=== PATIENT | female | born 1935 | race Caucasian/White ===

== ENCOUNTER → 2017-08-07 | Outpatient (CLI) | payer MEDICARE ==
[2017-08-07 10:27] LABS: ABSOLUTE BASOPHILS 0.1 thou/uL (0.0-0.2); ABSOLUTE EOSINOPHILS 0.2 thou/uL (0.0-0.7); ABSOLUTE LYMPHOCYTES 1.3 thou/uL (0.8-5.3); ABSOLUTE MONOCYTES 0.5 thou/uL (0.0-1.2); ABSOLUTE NEUTROPHILS 2.9 thou/uL (1.6-8.1); BASOPHILS 1.9 %; EOSINOPHILS 3.5 %; HEMATOCRIT 37.7 % (37.0-47.0); HEMOGLOBIN 12.6 gm/dL (12.0-15.0); LYMPHOCYTES 25.9 %; MCH 28.8 pg (26.0-34.0); MCHC 33.3 g/dL (28.0-37.0); MCV 86.6 fL (80.0-100.0); MONOCYTES 9.6 %; MPV 7.4 fl. (7.2-11.1); NUCLEATED RBCS 0 /100WBC; PLATELET COUNT* 286 thou/uL (150-400); POLYS 59.1 %; RBC 4.36 mil/uL (4.20-5.00); WBC 4.9 thou/uL (4.0-11.0)
[2017-08-07 10:46] LABS: ALBUMIN 3.2 g/dL (3.4-5.0); CALCIUM 8.8 mg/dL (8.5-10.1); CREATININE 0.8 mg/dL (0.6-1.3); PHOSPHORUS* 3.6 mg/dL (2.5-4.9); POTASSIUM 4.3 mmol/L (3.5-5.1)
[2017-08-07 21:07] LABS: eGFR IF AFRICAN AMERICAN 69 (>59)
[2017-08-08 15:11] LABS: PARATHYROID HORMONE 50 pg/mL (15-65)
== END ==
LOC: M.LAB 10:08
PROVIDERS: Internal Medicine Nephrology
DX: N18.3 Chronic kidney disease, stage 3 (moderate) (principal)

== ENCOUNTER 2018-07-30 09:31 | Inpatient (IN) | payer MEDICARE ==
[2018-07-30] VITALS (9 sets, daily range): BP systolic 102–182; BP diastolic 37–96
[~2018-07-30] VITALS: Ht 160 cm; Wt 65.3 kg
[2018-07-30 10:11] LABS: ABSOLUTE LYMPHOCYTES 0.8 thou/uL (0.8-5.3); ABSOLUTE MONOCYTES 0.7 thou/uL (0.0-1.2); ABSOLUTE NEUTROPHILS 6.1 thou/uL (1.6-8.1); BASOPHILS 0.4 %; EOSINOPHILS 0.4 %; HEMATOCRIT 38.2 % (37.0-47.0); HEMOGLOBIN 13.5 gm/dL (12.0-15.0); LYMPHOCYTES 10.9 %; MCH 29.7 pg (26.0-34.0); MCHC 35.3 g/dL (28.0-37.0); MCV 84.1 fL (80.0-100.0); MONOCYTES 8.8 %; MPV 7.6 fl. (7.2-11.1); NUCLEATED RBCS 0 /100WBC; PLATELET COUNT* 283 thou/uL (150-400); POLYS 79.5 %; RBC 4.55 mil/uL (4.20-5.00); RDW-CV 13.5 % (10.5-14.5); WBC 7.6 thou/uL (4.0-11.0)
[2018-07-30 10:19] LABS: ANION GAP 11 mmol/L (7-16); BUN 12 mg/dL (7-18); CALCIUM 8.7 mg/dL (8.5-10.1); CHLORIDE 78 mmol/L (98-107); CO2 28 mmol/L (21-32); CREATININE 0.8 mg/dL (0.6-1.3); GLUCOSE 105 mg/dL (70-99); POTASSIUM 3.4 mmol/L (3.5-5.1)
[2018-07-30 10:21] LABS: SODIUM 117 mmol/L (136-145)
[2018-07-30 10:31] LABS: ALBUMIN 3.3 g/dL (3.4-5.0); ALKALINE PHOSPHATASE 89 U/L (46-116); LIPASE 81 U/L (73-393); SGOT 26 U/L (15-37); SGPT 23 U/L (30-65); TOTAL BILIRUBIN 0.9 mg/dL (<0.1-1.0); TOTAL PROTEIN 7.1 g/dL (6.4-8.2); TROPONIN-I LEVEL <0.06 ng/mL (<0.06)
[2018-07-30] MEDS ORDERED: ESTRACE1 MG PO (13:24)
[2018-07-30] MEDS ORDERED: OMEPRAZOLE 20 M20 M1 PO (13:25)
[2018-07-30] MEDS ORDERED: ATIVAN0.5 MG PO (13:26)
[2018-07-30] MEDS ORDERED: LISINOPRIL40 MG PO (13:30)
[2018-07-30] MEDS ORDERED: ULTRAM 50MG TAB50 MG PO (13:31)
[2018-07-30] MEDS ORDERED: CENTRUM SILVER1 EAC4 PO (13:32)
[2018-07-30] MEDS ORDERED: BENEFIBER1 EAC1 PO (13:32)
[2018-07-30] MEDS ORDERED: SYMBICORT160 MCG/4. INH (13:34)
[2018-07-30] MEDS ORDERED: CHERATUSSIN AC118 ML PO (13:35)
--- NOTE | 2018-07-30 15:08 | EKG ---
[place] [address] ELECTROCARDIOGRAM REPORT Name: VARUN WOO Room: [address] ADM IN M.R.#: [id number] Admission: 07/30/18 Attend Phys: Nirav Kuhn Discharge: Date of : 33 Report #: [id number] THIS REPORT FOR: //name// [facility] ED Test Date: 2018-07-30 Test Time: 10:01:58 Pat Name: VARUN WOO Department: Room: [facility] Gender: F Operational Review Sergeant: ZBIGNIEW : 1935 Requested By: Misael Martins Order Number: [id number] MD: Grant Blair Measurements Intervals [place] Rate: 71 P: 60 [place]: 212 QRS: -51 QRSD: 136 T: 74 QT: 463 QTc: 504 Interpretive Statements Sinus rhythm Borderline prolonged AK interval Left bundle branch block No previous ECG available for comparison Electronically Signed On 07-30-2018 15:08:39 CDT by Grant Blair [email or web address] <ELECTRONICALLY SIGNED> By: Grant Blair MD, [facility] 07/30/18 1508 00 00 Grant Blair MD, FAC /EPI
[2018-07-30 15:55] LABS: URINE BILIRUBIN NEGATIVE (Negative); URINE BLOOD 2+ (Negative); URINE CLARITY CLEAR; URINE COLOR YELLOW; URINE GLUCOSE-RANDOM NEGATIVE (Negative); URINE KETONES 1+ (Negative); URINE LEUKOCYTES NEGATIVE (Negative); URINE NITRITE NEGATIVE (Negative); URINE PROTEIN NEGATIVE (Negative); URINE UROBILINOGEN 0.2 E.U./dl (0.2-1.0)
[2018-07-30 16:16] LABS: CASTS None Seen /LPF (None Seen); MUCUS None Seen strn/LPF (None Seen); SQUAMOUS >10 Many /LPF (0-3)
[2018-07-30 16:17] LABS: BACTERIA None Seen /HPF (None Seen); CRYSTALS None Seen /LPF (None Seen); URINE RBC 3-10 Few /HPF (0-2); URINE WBC None Seen /HPF (0-5)
--- NOTE | 2018-07-30 18:08 | NUR ---
PATIENT ADMITTED FROM ER DENIES DISTRESS. STARTED IV RT FA FLUIDS INFUSING PAIN CONTROLLED WITH TRAMADOL. NEPHROLOGY CONSULTED SPOKE WITH DR MONDRAGON IF NA NOT ABOVE 120.
[2018-07-31] VITALS (19 sets, daily range): BP systolic 83–160; BP diastolic 52–108
[2018-07-31 02:47] LABS: CALCIUM 8.4 mg/dL (8.5-10.1); CREATININE 0.8 mg/dL (0.6-1.3); POTASSIUM 3.1 mmol/L (3.5-5.1)
[2018-07-31 05:02] LABS: CALCIUM 7.9 mg/dL (8.5-10.1); CREATININE 0.7 mg/dL (0.6-1.3); POTASSIUM 3.1 mmol/L (3.5-5.1)
--- NOTE | 2018-07-31 06:20 | NUR ---
ASSUMED CARE OF PT AT 1900 PT ALERT AND ORIENTED X4 VS AND ASSESSMENT STABLE. PT C/O NAUSEA OBTAINED ORDERS FOR ZOFRAN GAVE X2 OVERNIGHT. PT NA [address] MACEDO ORDERS OBTAINED FOR 3% SALINE AT 20MLS/HR FOR A TOTAL OF 400ML AND RECHECH ELECTROLYTES Q2H. 0220 NA 116, 0420 NA 115. PT SLEPT THROUGH THE NIGHT. WILL CONTINUE PLAN OF CARE.
[2018-07-31 06:58] LABS: CALCIUM 7.9 mg/dL (8.5-10.1); CREATININE 0.7 mg/dL (0.6-1.3)
[2018-07-31 09:28] LABS: CALCIUM 8.1 mg/dL (8.5-10.1); CREATININE 0.7 mg/dL (0.6-1.3)
[2018-07-31 09:33] LABS: POTASSIUM 2.9 mmol/L (3.5-5.1)
--- NOTE | 2018-07-31 10:29 | NUR ---
INITIAL ASSESSMENT: Pt evaluated for d/c planning needs. Reviewed chart and spoke with nurse and pt. Pt is alert and oriented. Pt lives in house with daughter and S-I-L. Pt states she was independent with ADL's prior to admission and uses no DME. Pt has not had home health in the past. Pt plans on returning home on d/c from hospital. Will remain available to assist as needed.
--- NOTE | 2018-07-31 17:33 | NUR ---
PT CARE ASSUMED AFTER REPORT. ASSESSMENTS COMPLETE. SR ON MONITOR. PT UP FREQUNTLY TO URINATE WITH MINIMAL ASSIST WITH IV TUBING/WIRES. SCHEDULED TRAMADOL GIVEN FOR PAIN. PT A/O X4 BUT FORGETFUL. 3% SODIUM INFUSING PER ORDER WITH [facility] FOR SODIUM LEVEL. SLOWLY PROGRESSING TOWARDS GOALS.
[2018-08-01] VITALS (21 sets, daily range): BP systolic 104–171; BP diastolic 44–80
[2018-08-01 04:28] LABS: CREATININE 0.8 mg/dL (0.6-1.3); MAGNESIUM 1.9 mg/dL (1.8-2.4)
[2018-08-01 04:47] LABS: POTASSIUM 4.2 mmol/L (3.5-5.1)
--- NOTE | 2018-08-01 05:33 | NUR ---
PT. PROGRESSING TOWARDS GOALS. UP TO BSC INDEPENDENTLY. SODIUM 126. NO C/O PAIN. REQUESTED LORAZEPAM TO HELP HER SLEEP, DR. BEAN NOTIFIED, LORAZEPAM GIVEN PER PRN ORDER. SINUS RHYTHM, ROOM AIR. IV SALINE LOCKED. WILL CONTINUE TO MONITOR.
--- NOTE | 2018-08-01 17:02 | NUR ---
PT CARE ASSMUED AFTER REPORT. ASSESSMENTS COMPLETE. SR ON TR. ORDER FOR TELE GIVEN PER DR HERBERT. NEPHROLOGY NOTIFIED OF SODIUM LEVEL. REDRAW AT 1800. PT UP TO BSC. DENIES PAIN. REFUSED SCHEDULED PAIN MEDICATION. PROGRESSING TOWARDS GOALS.
[2018-08-01] MEDS ORDERED: LIBRAX PO ×2 (19:39→19:40)
[2018-08-02] VITALS (8 sets, daily range): BP systolic 92–165; BP diastolic 45–86
[2018-08-02 04:26] LABS: ABSOLUTE BASOPHILS 0.1 thou/uL (0.0-0.2); ABSOLUTE EOSINOPHILS 0.2 thou/uL (0.0-0.7); ABSOLUTE LYMPHOCYTES 1.7 thou/uL (0.8-5.3); ABSOLUTE MONOCYTES 0.8 thou/uL (0.0-1.2); ABSOLUTE NEUTROPHILS 3.3 thou/uL (1.6-8.1); BASOPHILS 1.3 %; HEMATOCRIT 33.3 % (37.0-47.0); LYMPHOCYTES 28.8 %; MCH 29.7 pg (26.0-34.0); MCHC 34.4 g/dL (28.0-37.0); MCV 86.3 fL (80.0-100.0); MONOCYTES 12.6 %; MPV 7.8 fl. (7.2-11.1); NUCLEATED RBCS 0 /100WBC; PLATELET COUNT* 275 thou/uL (150-400); POLYS 54.3 %; RBC 3.86 mil/uL (4.20-5.00); RDW-CV 13.9 % (10.5-14.5)
[2018-08-02 04:37] LABS: HEMOGLOBIN 11.5 gm/dL (12.0-15.0)
[2018-08-02 04:56] LABS: CALCIUM 7.9 mg/dL (8.5-10.1); CREATININE 0.9 mg/dL (0.6-1.3)
--- NOTE | 2018-08-02 05:22 | NUR ---
PT. SLEPT WELL THROUGHOUT SHIFT. FORGETFUL AT TIMES. REORIENTED NEEDED. UP TO BSC SBA. ADEQUATE URINE OUTPUT. PT. IS "HOPING TO GO HOME TODAY."
--- NOTE | 2018-08-02 10:45 | NUR ---
ASSUMED PT CARE 0730. PT A/O X'S 4. NO C/O PAIN. PT WORKED WITH THEBRONSONY. BP ELEVATED THIS AM SYSTOLIC 160'S. DR NOTIFIED. NO INTERVENTIONS. BP RECHECKED SYSTOLIC BP 139. PT CONCERNED ABOUT WHAT BP MEDS SHE WILL TAKE AT HOME. RELAYED TO BP AND PT'S CONCERN. NEPHORLOGY OKAY WITH DISCHARGE TODAY. OKAY WITH SODIUM BEING 127.
[2018-08-03 00:46] VITALS: BP 148/85
[2018-08-03 04:19] VITALS: BP 134/64
[2018-08-03 04:19] LABS: CALCIUM 8.8 mg/dL (8.5-10.1); CREATININE 0.9 mg/dL (0.6-1.3); POTASSIUM 4.1 mmol/L (3.5-5.1)
--- NOTE | 2018-08-03 06:04 | NUR ---
VITALS STABLE, AFEBRILE. ABLE TO SLEEP THROUGH THE NIGHT. CALL LIGHT WITHIN REACH.
[2018-08-03] MEDS ORDERED: CIPRO500 MG PO (09:25)
[2018-08-03] MEDS ORDERED: FLAGYL500 M1 PO (09:25)
[2018-08-03 09:41] VITALS: BP 134/64
[2018-08-03 09:54] VITALS: BP 134/64
[2018-08-03 12:09] VITALS: BP 172/78
--- NOTE | 2018-08-03 14:19 | NUR ---
PATIENT DISCHARGED HOME PER PRIVATE CAR INSTRUCTIONS GIVEN. HOME PER PRIVATE CAR.
--- NOTE | 2018-08-03 15:00 | NUR ---
ORDERS RECEIVED. PATIENT DC'ED PRIOR TO P.T. EVALUATION. EZLALEM REDDING, MPT
== END 2018-08-03 14:00 | disposition home or self-care (01) | DRG 371 ==
LOC: M.ERS 09:31 → M.ICU 11:48 → M.TBA-ER 11:48 → M.ICU 13:07
PROVIDERS: Emergency Medicine Emergency Medical Services; Family Medicine; Internal Medicine Nephrology; ADMIT Internal Medicine
DX: A04.9 Bacterial intestinal infection, unspecified (principal); G93.41 Metabolic encephalopathy; E87.1 Hypo-osmolality and hyponatremia; G89.29 Other chronic pain; I12.9 Hypertensive chronic kidney disease with stage 1 through stage 4 chronic kidney disease, or unspecified chronic kidney disease; F32.9 Major depressive disorder, single episode, unspecified; E87.6 Hypokalemia; N18.2 Chronic kidney disease, stage 2 (mild); Z88.2 Allergy status to sulfonamides; Z88.8 Allergy status to other drugs, medicaments and biological substances; Z79.899 Other long term (current) drug therapy

== ENCOUNTER 2018-12-30 09:59 | Emergency (ER) | payer MEDICARE ==
[~2018-12-30] VITALS: Ht 160 cm; Wt 63.5 kg
[~2018-12-30 09:59] MED LIST: ATIVAN0.5 MG PO; BENEFIBER1 EAC1 PO; CENTRUM SILVER1 EAC4 PO; CHERATUSSIN AC118 ML PO; CIPRO500 MG PO; ESTRACE1 MG PO; FLAGYL500 M1 PO; LIBRAX PO; LISINOPRIL40 MG PO; OMEPRAZOLE 20 M20 M1 PO; SYMBICORT160 MCG/4. INH; ULTRAM 50MG TAB50 MG PO
[2018-12-30 10:00] VITALS: BP 176/77
[2018-12-30] MEDS ORDERED: CATAPRES0.1 MG PO (10:15)
[2018-12-30] MEDS ORDERED: COZAAR100 MG PO (10:16)
[2018-12-30 10:40] LABS: ABSOLUTE BASOPHILS 0.1 thou/uL (0.0-0.2); ABSOLUTE EOSINOPHILS 0.2 thou/uL (0.0-0.7); ABSOLUTE LYMPHOCYTES 1.8 thou/uL (0.8-5.3); ABSOLUTE MONOCYTES 0.5 thou/uL (0.0-1.2); ABSOLUTE NEUTROPHILS 2.7 thou/uL (1.6-8.1); BASOPHILS 1.4 %; EOSINOPHILS 2.9 %; HEMATOCRIT 35.7 % (37.0-47.0); HEMOGLOBIN 12.2 gm/dL (12.0-15.0); LYMPHOCYTES 34.2 %; MCH 29.2 pg (26.0-34.0); MCHC 34.1 g/dL (28.0-37.0); MCV 85.6 fL (80.0-100.0); MONOCYTES 10.3 %; MPV 8.2 fl. (7.2-11.1); NUCLEATED RBCS 0 /100WBC; PLATELET COUNT* 228 thou/uL (150-400); POLYS 51.2 %; RBC 4.17 mil/uL (4.20-5.00); RDW-CV 14.5 % (10.5-14.5); WBC 5.2 thou/uL (4.0-11.0)
[2018-12-30 10:48] LABS: PROTIME 10.5 Seconds (9.20-11.50)
[2018-12-30 10:49] LABS: CALCIUM 7.9 mg/dL (8.5-10.1); POTASSIUM 3.4 mmol/L (3.5-5.1)
[2018-12-30 10:59] LABS: ALBUMIN 2.9 g/dL (3.4-5.0); TOTAL BILIRUBIN 0.4 mg/dL (<0.1-1.0); TOTAL PROTEIN 6.8 g/dL (6.4-8.2)
[2018-12-30 12:18] VITALS: BP 158/65
--- NOTE | 2018-12-31 11:38 | EKG ---
[place] [address] ELECTROCARDIOGRAM REPORT Name: VARUN WOO Room: [facility]#: [id number] Admission: 12/30/18 Attend Phys: Discharge: 12/30/18 Date of : 33 Report #: [id number] THIS REPORT FOR: //name// [facility] ED Test Date: 2018-12-30 Test Time: 10:07:17 Pat Name: VARUN WOO Department: Room: [facility] Gender: F Management Instructor: : 1935 Requested By: Deniz Roberts Order Number: [id number] MD: Garcia Gao Measurements Intervals [place] Rate: 72 P: 30 [place]: 194 QRS: -55 QRSD: 122 T: 84 QT: 428 QTc: 469 Interpretive Statements Sinus rhythm left axis LEFT VENTRICULAR HYPERTROPHY with repolarization abnormality Compared to ECG 07/30/2018 10:01:58 No significant changes Electronically Signed On 12-31-2018 11:38:21 FUNDRAISING MANAGER by Garcia Gao [email or web address] <ELECTRONICALLY SIGNED> By: Garcia Gao MD, [facility] 12/31/18 1138 1007 1007 Garcia Gao MD, FACC /EPI
== END 2018-12-30 12:19 | disposition home or self-care (01) ==
LOC: M.ERS 09:59 → M.TBA-ER 11:42 → M.ERS 12:19
PROVIDERS: Family Medicine
DX: I10 Essential (primary) hypertension (principal); R51 Headache; Z88.2 Allergy status to sulfonamides; Z88.8 Allergy status to other drugs, medicaments and biological substances

== ENCOUNTER 2020-06-26 16:10 | Emergency (ER) | payer MEDICARE ==
[~2020-06-26] VITALS: Ht 160 cm; Wt 68.0 kg
[~2020-06-26 16:10] MED LIST changes: +CATAPRES0.1 MG PO; +COZAAR100 MG PO
[2020-06-26] MEDS ORDERED: TOPROL XL50 MG PO (16:26)
[2020-06-26] MEDS ORDERED: LISINOPRIL20 MG PO (16:26)
[2020-06-26] MEDS ORDERED: KLOR-CON 10 ER10 MEQ PO (16:29)
[2020-06-26 16:44] LABS: ABSOLUTE BASOPHILS 0.1 thou/uL (0.0-0.2); ABSOLUTE EOSINOPHILS 0.4 thou/uL (0.0-0.7); ABSOLUTE LYMPHOCYTES 1.9 thou/uL (0.8-5.3); ABSOLUTE MONOCYTES 0.6 thou/uL (0.0-1.2); ABSOLUTE NEUTROPHILS 2.5 thou/uL (1.6-8.1); BASOPHILS 1.7 %; EOSINOPHILS 6.8 %; HEMATOCRIT 36.7 % (37.0-47.0); HEMOGLOBIN 12.3 gm/dL (12.0-15.0); LYMPHOCYTES 35.1 %; MCH 28.7 pg (26.0-34.0); MCHC 33.5 g/dL (28.0-37.0); MCV 85.8 fL (80.0-100.0); MONOCYTES 10.7 %; MPV 7.7 fl. (7.2-11.1); NUCLEATED RBCS 0 /100WBC; PLATELET COUNT* 264 thou/uL (150-400); POLYS 45.7 %; RBC 4.28 mil/uL (4.20-5.00); RDW-CV 14.8 % (10.5-14.5); WBC 5.5 thou/uL (4.0-11.0)
[2020-06-26 16:52] LABS: CALCIUM 8.7 mg/dL (8.5-10.1); CREATININE 1.2 mg/dL (0.6-1.3)
[2020-06-26 16:54] LABS: APTT 27.3 Seconds (25.0-31.3); PROTIME 10.5 Seconds (9.20-11.50)
[2020-06-26 16:54] LABS: URINE BILIRUBIN NEGATIVE (Negative); URINE BLOOD TRACE (Negative); URINE CLARITY CLEAR; URINE COLOR YELLOW; URINE GLUCOSE-RANDOM NEGATIVE (Negative); URINE KETONES NEGATIVE (Negative); URINE LEUKOCYTES-REFLEX NEGATIVE (Negative); URINE NITRITE-REFLEX NEGATIVE (Negative); URINE PROTEIN NEGATIVE (Negative); URINE UROBILINOGEN 0.2 E.U./dl (0.2-1.0)
[2020-06-26 17:02] LABS: ALBUMIN 3.5 g/dL (3.4-5.0); TOTAL BILIRUBIN 0.3 mg/dL (<0.1-1.0); TOTAL PROTEIN 7.2 g/dL (6.4-8.2)
[2020-06-26 17:25] VITALS: BP 160/73
--- NOTE | 2020-06-29 13:43 | EKG ---
[place] [address] ELECTROCARDIOGRAM REPORT Name: VARUN WOO Room: [facility]#: [id number] Admission: 06/26/20 Attend Phys: Discharge: 06/26/20 Date of : 33 Date of Service: 06/26/20 1623 Report #: [id number] THIS REPORT FOR: //name// [facility] ED Test Date: 2020-06-26 Test Time: 16:23:49 Pat Name: VARUN WOO Department: Room: Gender: F Apparatus Engineering Technologist: : 1935 Requested By: Deniz Roberts Order Number: [id number] MD: Grant Blair Measurements Intervals [place] Rate: 65 P: 52 SD: 197 QRS: -49 QRSD: 124 T: 82 QT: 451 QTc: 469 Interpretive Statements Sinus rhythm Atrial premature complex Nonspecific intraventricular conduction delay Compared to ECG 12/30/2018 10:07:17 Atrial premature complex(es) now present LVH persists Early repolarization no longer present Electronically Signed On 06-29-2020 13:43:23 CDT by Grant Blair [email or web address] <ELECTRONICALLY SIGNED> By: Grant Blair MD, [facility] 06/29/20 1343 1623 1623 Grant Blair MD, [facility] /EPI
== END 2020-06-26 17:26 | disposition home or self-care (01) ==
LOC: M.ERS 16:10
PROVIDERS: Family Medicine
DX: I10 Essential (primary) hypertension (principal); Z96.0 Presence of urogenital implants; Z79.899 Other long term (current) drug therapy; Z88.2 Allergy status to sulfonamides; Z88.8 Allergy status to other drugs, medicaments and biological substances

== ENCOUNTER → 2020-07-27 | Outpatient (CLI) | payer MEDICARE ==
[~2020-07-27] MED LIST changes: +KLOR-CON 10 ER10 MEQ PO; +LISINOPRIL20 MG PO; +TOPROL XL50 MG PO
[2020-07-27 10:56] LABS: POTASSIUM 3.9 mmol/L (3.5-5.1)
== END ==
LOC: M.LAB 10:00
PROVIDERS: ATTEND Internal Medicine Cardiovascular Disease
DX: I10 Essential (primary) hypertension (principal)

== ENCOUNTER 2020-08-08 14:49 | Emergency (ER) | payer MEDICARE ==
[~2020-08-08] VITALS: Ht 157.5 cm; Wt 68.0 kg
[2020-08-08] MEDS ORDERED: HYDROCHLOROTHIA25 M1 PO (15:16)
[2020-08-08] MEDS ORDERED: NORVASC5 MG PO (15:16)
[2020-08-08 15:33] LABS: ABSOLUTE BASOPHILS 0.1 thou/uL (0.0-0.2); ABSOLUTE EOSINOPHILS 0.4 thou/uL (0.0-0.7); ABSOLUTE LYMPHOCYTES 2.2 thou/uL (0.8-5.3); ABSOLUTE MONOCYTES 0.4 thou/uL (0.0-1.2); ABSOLUTE NEUTROPHILS 2.9 thou/uL (1.6-8.1); BASOPHILS 1.4 %; EOSINOPHILS 6.7 %; HEMATOCRIT 36.8 % (37.0-47.0); HEMOGLOBIN 12.7 gm/dL (12.0-15.0); LYMPHOCYTES 37.5 %; MCH 29.3 pg (26.0-34.0); MCHC 34.5 g/dL (28.0-37.0); MONOCYTES 6.5 %; MPV 7.6 fl. (7.2-11.1); NUCLEATED RBCS 0 /100WBC; PLATELET COUNT* 264 thou/uL (150-400); POLYS 47.9 %; RBC 4.33 mil/uL (4.20-5.00)
[2020-08-08 15:42] LABS: CALCIUM 8.5 mg/dL (8.5-10.1); CREATININE 1.1 mg/dL (0.6-1.3); POTASSIUM 3.5 mmol/L (3.5-5.1)
[2020-08-08 15:46] LABS: ALBUMIN 3.3 g/dL (3.4-5.0); TOTAL BILIRUBIN 0.3 mg/dL (<0.1-1.0); TOTAL PROTEIN 6.8 g/dL (6.4-8.2)
[2020-08-08] MEDS ORDERED: AUGMENTIN 875-1 EACH PO (16:55)
[2020-08-08 17:03] VITALS: BP 148/55
--- NOTE | 2020-08-09 11:32 | EKG ---
[place] [address] ELECTROCARDIOGRAM REPORT Name: CHILOVARUN Room: [facility]#: [id number] Admission: 08/08/20 Attend Phys: Discharge: 08/08/20 Date of : 33 Date of Service: 08/08/20 1455 Report #: [id number] THIS REPORT FOR: //name// [facility] ED Test Date: 2020-08-08 Test Time: 14:55:18 Pat Name: VARUN WOO Department: Room: Gender: F Psychologist Experimental: LATOYA SAVAGE : 1935 Requested By: Misael Martins Order Number: [id number] MD: Garcia Gao Measurements Intervals [place] Rate: 75 P: 38 [place]: 188 QRS: -51 QRSD: 130 T: 90 QT: 459 QTc: 513 Interpretive Statements Sinus rhythm Probable left atrial enlargement Left axis LEFT VENTRICULAR HYPERTROPHY with repolarization changes Compared to ECG 06/26/2020 16:23:49 Atrial premature complex(es) no longer present Electronically Signed On 08-09-2020 11:32:12 CDT by Garcia Gao [email or web address] <ELECTRONICALLY SIGNED> By: Garcia Gao MD, FAC 08/09/20 1132 1455 1455 Garcia Gao MD, FAC /EPI
== END 2020-08-08 17:03 | disposition home or self-care (01) ==
LOC: M.ERS 14:49
PROVIDERS: Emergency Medicine Emergency Medical Services
DX: K52.9 Noninfective gastroenteritis and colitis, unspecified (principal); R55 Syncope and collapse; Z88.2 Allergy status to sulfonamides; Z88.8 Allergy status to other drugs, medicaments and biological substances